=== PATIENT | male | born 1950 | race Caucasian/White ===

== ENCOUNTER 2023-11-03 11:25 | Emergency (ER) | payer MEDICARE, SELFPAY ==
[2023-11-03 11:32] VITALS: BP 163/107
[2023-11-03 12:41] VITALS: BP 158/119
[2023-11-03 12:46] VITALS: BMI 33.5
[2023-11-03 12:47] LABS: Urine Albumin Negative (Neg - Trace); Urine Bilirubin Negative (Negative); Urine Character Clear (Clear); Urine Color Yellow; Urine Glucose Negative (Negative); Urine Ketone Negative (Negative); Urine Leukocyte Negative (Negative); Urine Nitrite Negative (Negative); Urine Occult Blood Negative (Negative); Urine Specific Gravity 1.005 (<1.030); Urine Urobilinogen Negative (Neg - 1+)
[2023-11-03 12:54] LABS: % Basophils 0.5 % (0-2); % Eosinophils 2.9 % (0-6); % Immature Granulocytes 0.3 % (0-0.5); % Lymphocytes 16.2 % (20.5-51.1); % Monocytes 8.4 % (1.7-9.3); % Neutrophils 71.7 % (42.2-75.2); Absolute Eosinophils 0.2 10^3/uL (0-0.7); Absolute Lymphocytes 1.1 10^3/uL (1.2-3.4); Absolute Monocytes 0.6 10^3/uL (0.1-0.6); Absolute Neutrophils 4.8 10^3/uL (1.4-6.5); Hematocrit 53.1 % (39.0-52.0); Hemoglobin 15.6 g/dL (13.0-18.0); Mean Corp Hgb Conc. 29.4 g/dL (33.0-37.0); Nucleated Red Blood Cells % 0 % (-); Red Blood Cell Count 4.87 10^6/uL (4.70-6.10); Red Cell Dist. Width 16.7 % (11.5-14.5); White Blood Cell Count 6.7 10^3/uL (4.8-10.8)
[2023-11-03 13:10] LABS: ALT (SGPT) 23 U/L (0-50); AST (SGOT) 28 U/L (17-59); Albumin 4.6 g/dl (3.5-5.0); Alkaline Phosphatase 60 U/L (38-126); Blood Urea Nitrogen 23 mg/dl (9-20); Carbon Dioxide 29 mmol/L (22-30); Chloride 104 mmol/L (98-107); Estimated Creatinine Clearance 75 ml/min; Glucose 82 mg/dl (70-99); Potassium 4.4 mmol/L (3.5-5.1); Sodium 141 mmol/L (135-145); Total Bilirubin 0.7 mg/dl (0.2-1.3); Total Protein 7.3 g/dl (6.3-8.2); eGFR > 60.00
[2023-11-03 13:26] LABS: Mean Platelet Volume 9.5 fL (7.4-10.4); Platelet Count 51 10^3/uL (130-400)
--- NOTE | 2023-11-03 13:30 | ED.GENMED ---
History of Present Illness
General
Chief Complaint: Flank Pain
Source: patient
Exam Limitations: none
Time Seen by Provider: 11/03/23 12:20
Nursing documentation reviewed up to this point in time: agreed with
Travel History
Have you had any contact with someone who has COVID-19?: No
Do you have any symptoms of coronavirus? Fever > 100 degrees, chills, cough, shortness of breath, sore throat, loss of taste or smell, muscle aches, or headache?: No
History of Present Illness
History of Present Illness:
72-year-old male with history of NIDDM, HLD presents with left flank pain. He states for the past 2 weeks has had mild intermittent left flank pain that has become worse in the past 3 days. Tylenol helped initially but not in the past 3 days. He
states the pain is intermittent and sharp and is aggravated with certain movements at times. He denies fever or chills. Denies N/V/D/C. The pain is 1/10 at this time
Past History
Past History
ED Past Medical History: HTN, Hypercholesterolemia and NIDDM
ED Past Surgical History: Urological (PAE 2021)
Social History
Tobacco: Non-smoker
Alcohol: Occasional
Personal:
Living: with family
Employment: Retired
Review of Systems
Review of Systems
Allergies reviewed?: Yes
All Other Systems: ROS reviewed and negative except as documented in HPI and ROS
Constitutional: Denies fever
Respiratory: Denies trouble breathing
Cardiac: Denies chest pain
ABD/GI: Denies abdominal pain
: Reports flank pain (left); Denies dysuria, frequency, incontinence, difficulty voiding, urgency or bleeding
Musculoskeletal: Reports no symptoms
Skin: Reports no symptoms
Neurological: Reports no symptoms
Phy Exam
Physical Exam
Physical Exam:
GENERAL: No acute distress. A&Ox3.
CONSTITUTIONAL: Afebrile.
RESPIRATORY: Regular respirations, nonlabored, lungs clear.
CARDIOVASCULAR: Regular rate and rhythm, no murmurs, no rubs.
GI: Soft, nontender, normal BS
MUSCULOSKELETAL: Unable to reproduce left flank pain with palpation, moving well without pain. Moves with ease. Well perfused.
SKIN: Warm, dry, pink
PSYCH: Normal mood and affect. Well kept, interactive and appropriate
NEUROLOGIC: Awake, alert and oriented. No focal neurological deficits
Course
Orders/Labs/Results
Orders:
Orders
11/03/23 12:12
Urinalysis Reflex To Culture Urgent
Date Specimen was Collected: 11/03/23
Time Specimen was Collected: 11:37
11/03/23 12:36
CT Abd/pel Without Iv Or Oral Urgent
Comment:
Reason For Exam: L flank pain
11/03/23 12:44
Complete Blood Count/With Diff Urgent
Comprehensive Metabolic Panel Urgent
Abnormal Lab Results
11/03/23
12:44
Hct 53.1 H %
(39.0-52.0)
MCV 109.0 H fL
(80.0-94.0)
MCH 32.0 H pg
(27.0-31.0)
MCHC 29.4 L g/dL
(33.0-37.0)
RDW 16.7 H %
(11.5-14.5)
Plt Count 51 L 10^3/uL
(130-400)
Absolute Lymphs (auto) 1.1 L 10^3/uL
(1.2-3.4)
Lymphocytes % 16.2 L %
(20.5-51.1)
BUN 23 H mg/dl
(9-20)
11/03/23 12:44
11/03/23 12:44
Vital Signs
Initial and Last Documented VS:
Initial Vital Signs
Temp Pulse Resp BP Pulse Ox
97.9 F 62 18 163/107 99
11/03/23 11:32 11/03/23 11:32 11/03/23 11:32 11/03/23 11:32 11/03/23 11:32
Last Documented Vital Signs
Temp Pulse Resp BP Pulse Ox
97.9 F 62 18 144/104 99
11/03/23 11:32 11/03/23 11:32 11/03/23 11:32 11/03/23 14:29 11/03/23 11:32
MDM/Problems Addressed
Differential Diagnosis Includes:
Kidney stone, UTI, musculoskeletal.
MDM/Problems Addressed:
72-year-old male visiting family with his from [place] to go back to [place] next month, history of NIDDM, HLD presents with left flank pain. He states for the past 2 weeks has had mild intermittent left flank pain that has become worse in the
past 3 days. Tylenol helped initially but not in the past 3 days. He states the pain is intermittent and sharp and is aggravated with certain movements at times. He denies fever or chills. Denies N/V/D/C. The pain is 1/10 at this time
Afebrile, NAD
1:30 PM
CBC shows shows thrombocytopenia Platelets 51.
About a month ago, PCP found low platelet count of '21' then rechecked in 2 weeks and was '70.' He states he is being worked up for 'some autoimmune disease.'
CMP with no clinically significant abnormality
UA negative
CT abdomen pelvis radiology report read: No finding to suggest urinary tract calculus or dilatation bilaterally.
Will treat as musculoskeletal pain for now, all results given to pt.
BP on discharge 144/104
He takes losartan 100 mg daily, will add Amlodipine 2.5 mg daily, He will f/u w PCP when [place] gets back to [place] in 2-3 weeks (he states it takes a week sometimes for his PCP to get back to him and he would like to start a BP med now.)
Workup basically neg. He did drive up from [place] 3 and 2 days ago which would support musculoskeletal pain.
Return instructions reviewed
He will F/U with his PCP in [place] next month when he returns, will return here in meantime for anything worrisome
*Critical Care Note
Total Time (30-74mins, 75-104mins- exclusive of procedures): Not Applicable
ED Attending Note
-
Portions of this chart may have been created with voice recognition software.� Occasional wrong word or��sound alike� substitutions may have occurred due to the inherent limitations of voice recognition software.
Discharge Plan
Departure
Patient Disposition: Home (Routine Discharge)
Date of Disposition: 11/03/23
Time of Disposition: 13:43
Patient with high blood pressure during this ER visit?: Yes
Condition: Good
Discharge Problem:
Left flank pain
Instructions: Flank Pain (DC), Low Back Pain ED
Prescriptions:
New
tramadol 50 mg tablet
50 mg PO BID PRN (Reason: Pain) Qty: 8 0RF
amlodipine 2.5 mg tablet
2.5 mg PO DAILY Qty: 30 0RF
Referrals:
Your, Doctor [Other] - As needed
Activity Restrictions/Additional Instructions:
As we discussed, nothing in today's workup to explain your pain.
We will treat it as musculoskeletal pain for now.
I sent a prescription to your pharmacy for Tramadol to use if the Tylenol is not helping
Both the Flexeril and tramadol can make you sleepy and slow your reflexes so do not drive within 8 hours of taking them.
See your doctor when you get back to [place] to discuss your lab work and CT scan.
Return here immediately for fever, worsening pain, vomiting or feeling sicker in any way
Interventions
Interventions:
*Risk Screen - Suicide Last Done: 11/03/23 12:46
*General Assessment Last Done: 11/03/23 12:46
*Neglect/Abuse Screening Last Done: 11/03/23 12:46
ED- Fall Risk Assessment Last Done: 11/03/23 12:46
*ED COVID-19 Vaccine History Last Done: 11/03/23 12:46
*Nursing Disposition Last Done: 11/03/23 14:31
ZQ-Jwzlyz-Rpjaqdzrcv Assessment Last Done: 11/03/23 12:46
ED-Male Genitourinary Assessment Last Done: 11/03/23 12:46
Discharge Date and Time
Discharge Date/Time: 11/03/23 14:49
Print Language: BULGARIAN
[2023-11-03 14:23] VITALS: BP 152/104
[2023-11-03 14:26] VITALS: BP 161/102
[2023-11-03 14:27] VITALS: BP 144/104
[2023-11-03 14:29] VITALS: BP 144/104
== END 2023-11-03 14:49 | disposition home or self-care (01) ==
LOC: EMR 11:25
PROVIDERS: Registered Nurse; EMERGENCY PHYSICIAN Emergency Medicine
DX: R10.9 Unspecified abdominal pain (principal); I10 Essential (primary) hypertension; E78.00 Pure hypercholesterolemia, unspecified; E11.9 Type 2 diabetes mellitus without complications; D69.6 Thrombocytopenia, unspecified; Z79.899 Other long term (current) drug therapy
CPT/HCPCS: 99284; 74176; 80053; 81003; 85025